=== PATIENT | female | born 1990 | race Hispanic/Latino ===

== ENCOUNTER 2017-05-07 19:53 | Emergency (ER) | payer MEDICAID ==
[2017-02-19 15:23] VITALS: BMI 39.2
--- NOTE | 2017-05-07 20:51 | OBHP ---
Datetime: 05/07/2017 20:43 IP Adm Impression: , intrauterine IP Chief Complaint Other: hip pain and lower extremity pain and swelling Admit Comment, IP Provider: chief complaint-hip pain, lower extremity swelling HPI 27 y/o at 30.5 wga with c/o left hip paina nd leg pain.Reporst having swelling in both e feet.patient states that she has had pain in her leg on left side throughout the pregnancybut wose since past 2 days.Patient states that the pain is shooting in nature but changes sides.Also has been notcing swelling in her feet course uncomplicated PMH degenerative disc disease PSH denies OBGYN HX ; hx of stillborn at 23 weeks; 2 nvdx2 Exam see exam section A/P 27 y/o female at 30.5 wga with lower extremity pain, swelling and hip pain.hx of degernative d isc in past.fht reactive.BP wnl -patient sent to main er for further evaluation Pelvic Type - PN: Adequate Extremities - PN: Normal Lungs - PN: Normal Heart - PN: Normal Neurologic - PN: Not Done General - PN: Normal Gestation - Est Wks by US: 30.5 EGA AdmitDate IP: 30.5 Vital Signs Provider: Reviewed; Within Normal Limits IP Chief Complaint: Other FHR Category Provider Fetus A: Category I
[2017-05-07 21:43] VITALS: TEMP 98.4
--- NOTE | 2017-05-07 22:40 | C.PDOC ---
History Of Present Illness Patient, who is currently around 31 weeks , presents to the ED for evaluation of left hip pain began a couple days ago. Patient notes she has been experiencing left hip pain throughout her , but notes her pain has worsened and has been radiating down her left leg. Patient was evaluated and screened at [facility]D ED, with unremarkable results. Patient denies fever, chills, abdominal cramping, vaginal bleeding, direct trauma/injuries to the affected area. Chief Complaint (Nursing): Hip Pain History Per: Patient History/Exam Limitations: no limitations Onset/Duration Of Symptoms: Days Current Symptoms Are (Timing): Still Present Severity: Mild Pain Scale Rating Of: 3 Recent travel outside of the [place]: No Additional History Per: Patient - Hip Description Of Injury: denies: Fell, Tripped, Struck With Object Past Medical History Reviewed: Historical Data, Nursing Documentation, Vital Signs Vital Signs: Last Vital Signs Temp 98.4 F 05/07/17 21:38 Pulse 78 05/07/17 21:38 Resp 20 05/07/17 21:38 BP 110/74 05/07/17 21:38 Pulse Ox 99 05/07/17 23:12 - Medical History PMH: No Chronic Diseases Surgical History: Cholecystectomy Family History: States: Unknown Family Hx - Social History Hx Alcohol Use: No Hx Substance Use: No - Immunization History Hx Tetanus Toxoid Vaccination: No Hx Influenza Vaccination: No Hx Pneumococcal Vaccination: No Review Of Systems Constitutional: Negative for: Fever, Chills Cardiovascular: Negative for: Chest Pain Respiratory: Negative for: Shortness of Breath Gastrointestinal: Negative for: Nausea, Vomiting, Abdominal Pain Musculoskeletal: Positive for: Leg Pain (left), Other (+left hip pain ). Negative for: Back Pain Skin: Negative for: Rash, Lesions, Jaundice, Bruising Neurological: Negative for: Weakness, Numbness Physical Exam - Physical Exam Appears: Non-toxic, No Acute Distress Skin: Warm, Dry Head: Normacephalic Eye(s): bilateral: Normal Inspection Oral Mucosa: Moist Neck: Supple Chest: Symmetrical, No Deformity, No Tenderness Cardiovascular: Rhythm Regular, No Murmur Respiratory: No Rales, No Rhonchi, No Wheezing Gastrointestinal/Abdominal: Soft, No Tenderness, No Guarding, No Rebound, Other (+gravid, fundal height at subxiphoid level) Back: No Vertebral Tenderness, Muscle Spasm (left), No Paraspinal Tenderness, Straight Leg Raising (pain 20 degrees, but pt is 31 weeks ) Extremity: Normal ROM, No Tenderness, No Calf Tenderness, Capillary Refill ( less than 2 seconds ), No Deformity, No Swelling Extremity: Bilateral: Normal Color And Temperature Pulses: Left Dorsalis Pedis: Normal, Right Dorsalis Pedis: Normal Neurological/Psych: Oriented x3, Normal Speech, Normal Cognition Gait: Steady ED Course And Treatment - Laboratory Results Result Diagrams: 05/07/17 23:03 05/07/17 23:03 O2 Sat by Pulse Oximetry: 99 (on RA) Pulse Ox Interpretation: Normal Progress Note: labs and Morphine IV ordered. Reevaluation Time: 00:02 Reassessment Condition: Improved Disposition Counseled Patient/Family Regarding: Studies Performed, Diagnosis, Need For Followup, Rx Given - Disposition Referrals: Bonita Clay MD [Primary Care Provider] - Disposition: HOME/ ROUTINE Disposition Time: 22:40 Condition: FAIR Additional Instructions: Please take a stool softer with the percocet Prescriptions: oxyCODONE/Acetaminophen [Percocet 5/325 mg Tab] 1 tab PO TID PRN #12 tab PRN Reason: Pain, Severe (8-10) Instructions: Sciatica (ED) Forms: [email or web address] ([place]ayan) - Clinical Impression Clinical Impression: Sciatica - Scribe Statement The provider has reviewed the documentation as recorded by the Scribe (Celeste Forde) Provider Attestation: All medical record entries made by the Scribe were at my direction and personally dictated by me. I have reviewed the chart and agree that the record accurately reflects my personal performance of the history, physical exam, medical decision making, and the department course for this patient. I have also personally directed, reviewed, and agree with the discharge instructions and disposition.
[2017-05-07] MEDS ORDERED: Morphine 4 MG/ML VIAL IV ONE (22:41)
[2017-05-07 23:08] LABS: BASO # 0.1 K/uL (0.0-0.2); BASO % 0.8 % (0.0-2.0); EOS # 0.1 K/uL (0.0-0.7); EOS % 1.2 % (0.0-4.0); HEMATOCRIT 33.2 % (34.0-47.0); LYMPH # 1.9 K/uL (1.0-4.3); MEAN CELL VOLUME 87.9 fL (81.0-99.0); MEAN CORPUSCULAR HEMOGLOBIN 29.3 pg (27.0-31.0); MEAN CORPUSCULAR HGB CONC 33.3 g/dL (33.0-37.0); MEAN PLATELET VOLUME 9.3 fL (7.2-11.7); MONO # 0.5 K/uL (0.0-0.8); MONO % 6.2 % (0.0-10.0); WHITE BLOOD COUNT 7.5 K/uL (4.8-10.8)
[2017-05-07 23:23] LABS: CHLORIDE 103 mmol/L (98-107); POTASSIUM 3.6 mmol/L (3.6-5.2); SODIUM 134 mmol/L (132-148)
[2017-05-07 23:26] LABS: BLOOD UREA NITROGEN 7 mg/dL (7-17); CARBON DIOXIDE 23 mmol/L (22-30); GFR AFRICAN-AMERICAN > 60; GLUCOSE,RANDOM 86 mg/dL (65-105)
[2017-05-07 23:27] LABS: CALCIUM 9.1 mg/dl (8.6-10.4)
[2017-05-07] MEDS ORDERED: Morphine 4 MG/ML VIAL ONE (23:44)
[2017-05-08 00:12] VITALS: BP 110/70; PULSE 70; RESP 14; O2SAT 98
== END 2017-05-08 00:12 | disposition home or self-care (01) ==
LOC: C.ER 19:53 → C.EROB 19:53 → C.ER 05-08 00:12
DX: O26.893 Other specified pregnancy related conditions, third trimester (principal); M54.32 Sciatica, left side; Z3A.30 30 weeks gestation of pregnancy